=== PATIENT | female | born 1955 | race Caucasian/White ===

== ENCOUNTER 2016-10-26 06:28 | Emergency (ER) | payer OTHER ==
--- NOTE | ~2016-10-26 | CT16 ---
[facility] A Service of [facility] & [facility] RADIOLOGY TEXT RESULTS PATIENT: JOYCE GARCÍA LOCATION: SED : 57 UNIT #: [id number] AGE: [address]: Carlos A Alvarado MD SEX: F ORDER DR: [id number] [address] [address] [id number] MR#: [id number] Acc #: [id number] NAME: JOYCE GARCÍA : 1955 SEX: F STUDY DATE/TIME: 10/26/2016 7:49 UNIT: SED ROOM: STUDY DESCRIPTION: CT Angio Chest for PE Attending Physician: Carlos A Alvarado M.D. Ordering Physician: Carlos A Alvarado M.D. Primary Care Physician: Alex Wellington M.D. MEDICAL IMAGING REPORT This report is preliminary unless electronic signature is present. EXAM CT scan chest with pulmonary embolus protocol INDICATIONS Cough and pain upper back since yesterday. Patient was given 80 mL of Isovue 370 and spiral imaging was performed through the chest. 3-D reconstructions of the pulmonary arteries were generated. There are no comparison studies. This CT exam was performed with one or more of the following radiation dose reduction techniques: automatic exposure control, adjustment of mA and/or kV according to patient size, and iterative reconstruction. There is a comparison CT abdomen and pelvis 11/30/2015. FINDINGS There is no CT evidence of pulmonary embolus. The aorta is normal in size. There is adequate opacification of pulmonary arteries. There is a pleural-based area of density in the left upper lobe anteriorly that is about 5 cm from front to back and about 15 mm in thickness. This is behind the left breast and the patient listed that she has had a lumpectomy and this probably due to radiation therapy change. There is some minimal fluffy density also seen in the left apex of the same area that could represent minimal infiltrate or additional radiation therapy change. There is a nodule in the right apex measuring 4 mm in diameter which is noncalcified. There is a calcified granuloma in the left upper lobe. There is no mediastinal or hilar adenopathy. The visualized portions upper abdomen are normal. The bones are unremarkable. IMPRESSION 1. Pleural based density measuring about 5 cm and front to back dimension and 15 mm in thickness and 2-3 cm from top to bottom. This [facility] A Service of [facility] & [facility] RADIOLOGY TEXT RESULTS PATIENT: JOYCE GARÍCA LOCATION: [facility] [place] 57 UNIT #: [id number] AGE: [address]: Carlos A Alvarado MD SEX: F ORDER DR: is behind the left breast and is typical of radiation therapy change and clinical correlation with previous radiation therapy to the breast is recommended. Slightly higher in the left lung there is 13 mm faint area of density that could represent minimal infiltrate or perhaps additional radiation therapy change. There is also a 4 mm noncalcified nodule in the right apex. For those two findings I would suggest a 6-month followup CT chest unless there are old studies documenting stability. 2. There are no CT evidence of pulmonary embolus. 1. Dictated by... Rafa Anna M.D. THIS IS AN ELECTRONICALLY VERIFIED REPORT Rafa Anna M.D. at 10/26/2016 12:02 PM Radha TD: 10/26/2016 09:19 JOB #: [id number] MEDICAL IMAGING REPORT Page 1 of 1
[~2016-10-26 06:28] MED LIST: FLEXERIL10 MG PO; LEVAQUIN PO; MEDROL4 MG/DOSE- PO; MOTRIN600 M1 PO; NO MEDICATIONS; PERCODAN TABLET1 TA1 PO
[2016-10-26 07:00] LABS: BASOPHIL# 0.2 X10e3 (0-0.3); BASOPHIL% 1.4 % (0-2.5); EOSINOPHIL# 0.1 X10e3 (0-0.7); HEMATOCRIT 40.4 % (35.0-45.0); HEMOGLOBIN 13.7 gm/dL (12.0-16.0); LYMPHOCYTE# 2.5 X10e3 (1.0-3.5); MEAN CELL VOLUME 90.2 FL (83-96); MEAN CORPUSCULAR HEMOGLOBIN 30.5 PG (28-34); MEAN CORPUSCULAR HGB CONC 33.8 g/dL (30-36); MEAN PLATELET VOLUME 8.1 FL (6.5-11.5); MONOCYTE# 1.2 X10e3 (0-1.0); MONOCYTE% 8.3 % (3.0-12.0); NEUTROPHIL# 10.4 X10e3 (1.5-7.1); NEUTROPHIL% 72.3 % (40-75); PLATELET COUNT 246 X10e3 (140-420); RED BLOOD COUNT 4.48 X10e (3.90-5.30); WHITE BLOOD COUNT 14.4 X10e3 (4.0-10.5)
[2016-10-26 07:02] LABS: DIFF IND NO
[2016-10-26 07:19] LABS: ALBUMIN SERUM 3.6 g/dL (3.5-5.0); BILIRUBIN, DIRECT 0.1 mg/dL (0.0-0.2); BILIRUBIN,INDIRECT 0.4 mg/dL (0.0-0.9); BILIRUBIN,TOTAL 0.5 mg/dL (0.2-2.0); BUN/CREATININE RATIO 17.14; CALCIUM SERUM 9.3 mg/dL (8.4-10.2); CREATININE SERUM 0.7 mg/dL (0.6-1.4); GLOM FILT RATE Estimated 94.2 mL/min (>60); POTASSIUM 3.8 mmol/L (3.5-5.1); PROTEIN TOTAL SERUM 7.9 g/dL (6.0-8.3)
== END 2016-10-26 08:55 | disposition home or self-care (01) ==
LOC: SED 06:28
PROVIDERS: Emergency Medicine
DX: J18.9 Pneumonia, unspecified organism (principal); Z88.5 Allergy status to narcotic agent; Z88.8 Allergy status to other drugs, medicaments and biological substances
CPT/HCPCS: 36415; 71275; 80048; 80076; 85025; 96361; 96374; 99284; J2930; Q9967